=== PATIENT | female | born 1995 ===

== ENCOUNTER 2016-12-21 08:49 | Emergency (ER) | payer MEDICAID ==
[2016-12-21 09:22] VITALS: BMI 33.6
[2016-12-21 09:25] VITALS: RESP 18
[2016-12-21] MEDS ORDERED: Ciprofloxacin 0.3% OPTH SOLN OS STA (10:08)
--- NOTE | 2016-12-21 10:10 | ED PDOC ---
Arrival/HPI - General Chief Complaint: Eye Problem Time Seen by Provider: 12/21/16 10:06 Historian: Patient - History of Present Illness Narrative History of Present Illness (Text): 12/21/16 10:06 This 21 yo female presents to this ED c/o left eye redness, itchy, and sensation of FB x 1 day. Denies injury, or sick contact. Context: Home Past Medical History - Provider Review Nursing Documentation Reviewed: Yes - Infectious Disease Hx of Infectious Diseases: None - HEENT Other/Comment: previous throat infections - Genitourinary/Gynecological Other/Comment: kidney infections 2016 - Psychiatric Hx Substance Use: No - Anesthesia Hx Anesthesia: No Hx Anesthesia Reactions: No Hx Malignant Hyperthermia: No Family/Social History - Physician Review Nursing Documentation Reviewed: Yes Family/Social History: No Known Family HX Smoking Status: Never Smoked Hx Alcohol Use: No Hx Substance Use: No Allergies/Home Meds Allergies/Adverse Reactions: Allergies almond Allergy (Verified 12/21/16 09:25) ITCHING cashew nut Allergy (Verified 12/21/16 09:25) ITCHING pecan nut Allergy (Verified 12/21/16 09:25) ITCHING Home Medications: Home Meds Medication Instructions Recorded Confirmed Etonogestrel [Nexplanon] 68 mg SQ ONCE 08/15/16 12/21/16 Ferrous Sulfate [Feosol] 325 mg PO TID 12/21/16 12/21/16 Review of Systems - Review of Systems Constitutional: Normal. absent: Fatigue, Weight Change, Fevers Eyes: Other (See HPI) ENT: Normal Respiratory: Normal. absent: SOB, Cough Cardiovascular: Normal Gastrointestinal: Normal Genitourinary Female: Normal Musculoskeletal: Normal Skin: Normal Neurological: Normal Endocrine: Normal Hemo/Lymphatic: Normal Psychiatric: Normal Physical Exam Vital Signs Temp Pulse Resp BP Pulse Ox 12/21/16 11:30 98.5 F 86 18 120/66 100 12/21/16 09:21 98.9 F 94 H 18 124/84 99 Temperature: Afebrile Blood Pressure: Normal Pulse: Regular Respiratory Rate: Normal Appearance: Positive for: Well-Appearing, Non-Toxic, Comfortable Pain Distress: None Mental Status: Positive for: Alert and Oriented X 3 - Systems Exam Head: Present: Atraumatic, Normocephalic Pupils: Present: PERRL, Other (no hyphema. No corneal or eyelid FB) Extroacular Muscles: Present: EOMI. No: Entrapment Conjunctiva: Present: Injected, Other ((+) mild left eye discharge. Fluorescine stain was negative. No corneal abrasion or laceration) Mouth: Present: Moist Mucous Membranes Neck: Present: Normal Range of Motion Upper Extremity: Present: Normal Inspection, Normal ROM, NORMAL PULSES, Neurovascularly Intact, Capillary Refill < 2s Lower Extremity: Present: Normal Inspection, Normal ROM, Neurovascularly Intact , Capillary Refill < 2 s Neurological: Present: GCS=15, CN II-XII Intact, Speech Normal Skin: Present: Warm, Dry, Normal Color. No: Rashes Psychiatric: Present: Alert, Oriented x 3 Medical Decision Making ED Course and Treatment: 12/21/16 11:39 Patient came to ED c/o left eye discharge, redness, and FB sensation. Denies eye trauma. Physical exam was unremarkable, except for conjunctivitis, mild discharge, no FB. Fluorescine stain was negative. Patient was treated with Ofloxacin Ophthalmic solution. Patient was give eye drop ABX bottle. Patient feels better, and she agrees with plan. Re-evaluation Time: 11:41 Reassessment Condition: Re-examined, Improved - Medication Orders Current Medication Orders: Discontinued Medications Ciprofloxacin (Ciloxan 0.3% Ophth Soln) 1 drop OS STAT STA Stop: 12/21/16 10:09 Last Admin: 12/21/16 10:36 Dose: 1 drop Disposition/Present on Arrival - Present on Arrival Any Indicators Present on Arrival: No History of DVT/PE: No History of Uncontrolled Diabetes: No Urinary Catheter: No History of Decub. Ulcer: No History Surgical Site Infection Following: None - Disposition Have Diagnosis and Disposition been Completed?: Yes Diagnosis: Conjunctivitis Disposition: HOME/ ROUTINE Disposition Time: 11:42 Patient Plan: Discharge Patient Problems: Current Active Problems Problem Status Onset Conjunctivitis Acute Condition: GOOD Discharge Instructions (ExitCare): Conjunctivitis (ED) Additional Instructions: Call private doctor for follow up visit in 1-2 days. Use 1 drop on affected eye every 2 hours for 2 days, then 1 drop every 4 hours for 5 days. Return to emergency if symptoms worsen. Forms: WORK NOTE
[2016-12-21 11:31] VITALS: BP 120/66; PULSE 86; TEMP 98.5; O2SAT 100
== END 2016-12-21 12:48 | disposition home or self-care (01) ==
LOC: ED 08:49
DX: H10.9 Unspecified conjunctivitis (principal)

== ENCOUNTER 2017-02-28 08:34 | Emergency (ER) | payer MEDICAID ==
[2017-02-28 08:35] VITALS: BMI 33.6
[2017-02-28 08:37] VITALS: TEMP 98.8
--- NOTE | 2017-02-28 09:32 | ED PDOC ---
Arrival/HPI - General Historian: Patient <QuirozAndrew sparrow Jr. - Last Filed: 02/28/17 11:12> - History of Present Illness Time/Duration: 4-6 hours Symptom Onset: Gradual Symptom Course: Unchanged Severity Level: 7 <Demetria Neal - Last Filed: 02/28/17 11:22> - General Chief Complaint: Weakness/Neurological Deficit Time Seen by Provider: 02/28/17 09:09 - History of Present Illness Narrative History of Present Illness (Text): 02/28/17 09:28 21 year old F with past medical history of migraines and anemia presents for GUTIERREZ that began last night. Patient states that GUTIERREZ is located on left frontal region with no radiation. Pain is associated with tingling on left side of tongue, left hand. Patient did not take any medication for the pain. GUTIERREZ is associated with nausea and vomiting x 3. Patient states that she normally uses and abortive medication for migraine but has run out of medications. She has not used any medications for the pain. Patient states her weakness and numbness in her extremity and tongue is improving. Headache is 7/10. (Demetria Neal) Past Medical History - Provider Review Nursing Documentation Reviewed: Yes - Travel History Have you recently traveled outside [place] w/in the past 3 mons?: No - Infectious Disease Hx of Infectious Diseases: None - Cardiac Hx Cardiac Disorders: No - Pulmonary Hx Respiratory Disorders: No - Neurological Hx Neurological Disorder: Yes Hx Migraine: Yes - HEENT Hx HEENT Disorder: No - Renal Hx Renal Disorder: No - Endocrine/Metabolic Hx Endocrine Disorders: No - Hematological/Oncological Hx Blood Disorders: Yes Hx Anemia: Yes - Integumentary Hx Dermatological Disorder: No - Musculoskeletal/Rheumatological Hx Musculoskeletal Disorders: No - Gastrointestinal Hx Gastrointestinal Disorders: No - Genitourinary/Gynecological Hx Genitourinary Disorders: No Other/Comment: kidney infections 2016 - Psychiatric Hx Psychophysiologic Disorder: No Hx Substance Use: No - Anesthesia Hx Anesthesia: No Hx Anesthesia Reactions: No Hx Malignant Hyperthermia: No <Demetria Neal - Last Filed: 02/28/17 11:22> Family/Social History - Physician Review Nursing Documentation Reviewed: Yes Family/Social History: Unknown Family HX Smoking Status: Never Smoked Hx Alcohol Use: No Hx Substance Use: No <Demetria Neal - Last Filed: 02/28/17 11:22> Allergies/Home Meds <Andrew Quiroz Jr. - Last Filed: 02/28/17 11:12> <SamuelóscarDemetria - Last Filed: 02/28/17 11:22> Allergies/Adverse Reactions: Allergies almond Allergy (Verified 02/28/17 08:36) ITCHING cashew nut Allergy (Verified 02/28/17 08:36) ITCHING pecan nut Allergy (Verified 02/28/17 08:36) ITCHING Review of Systems - Review of Systems Constitutional: Normal. absent: Fatigue, Fevers Eyes: Normal. absent: Vision Changes, Photophobia, Eye Pain ENT: Normal. absent: Hearing Changes, Sore Throat, Rhinorrhea, Sinus Congestion Respiratory: Normal. absent: SOB, Cough, Sputum, Wheezing Cardiovascular: Normal. absent: Chest Pain, Palpitations, Edema Gastrointestinal: Nausea, Vomiting. absent: Abdominal Pain, Constipation, Diarrhea Genitourinary Female: Normal. absent: Dysuria, Frequency Musculoskeletal: Normal. absent: Arthralgias, Back Pain, Neck Pain Skin: Normal. absent: Rash, Pruritis, Skin Lesions, Laceration Neurological: Headache. absent: Dizziness, Focal Weakness, Speech Changes, Facial Droop, Seizure Endocrine: Normal. absent: Diaphoresis, Polyuria Hemo/Lymphatic: Normal. absent: Adenopathy Psychiatric: Normal. absent: Anxiety, Depression <Demetria Neal - Last Filed: 02/28/17 11:22> Physical Exam Temperature: Afebrile Blood Pressure: Normal Pulse: Tachycardic Respiratory Rate: Normal Appearance: Positive for: Well-Appearing, Non-Toxic, Comfortable Pain Distress: Moderate Mental Status: Positive for: Alert and Oriented X 3 - Systems Exam Head: Present: Atraumatic, Normocephalic Pupils: Present: PERRL Extroacular Muscles: Present: EOMI Conjunctiva: Present: Normal Mouth: Present: Moist Mucous Membranes Neck: Present: Normal Range of Motion. No: Meningeal Signs, MIDLINE TENDERNESS Respiratory/Chest: Present: Clear to Auscultation, Good Air Exchange. No: Respiratory Distress, Accessory Muscle Use, Wheezes, Rales, Rhonchi Cardiovascular: Present: Regular Rate and Rhythm, Normal S1, S2. No: Murmurs, Rub, Gallop, Muffled Abdomen: Present: Normal Bowel Sounds. No: Tenderness, Distention, Peritoneal Signs Upper Extremity: Present: Normal Inspection, Normal ROM, NORMAL PULSES. No: Edema Lower Extremity: Present: Normal Inspection, Normal ROM, Neurovascularly Intact. No: Edema, CALF TENDERNESS, NORMAL PULSES, Jose's Sign Neurological: Present: GCS=15, CN II-XII Intact, Speech Normal, Motor Func Grossly Intact, Normal Sensory Function, Normal 2Pt Descrimination Skin: Present: Warm, Dry, Normal Color. No: Rashes Psychiatric: Present: Alert, Oriented x 3, Normal Insight, Normal Concentration <KarimDemetria - Last Filed: 02/28/17 11:22> Vital Signs Temp Pulse Resp BP Pulse Ox 02/28/17 10:02 77 16 129/65 100 02/28/17 08:37 98.8 F 100 H 15 124/87 99 Medical Decision Making - EKG Interpretation Interpreted by ED Physician: Yes Type: 12 lead EKG <Andrew Quiroz Jr. - Last Filed: 02/28/17 11:12> <Demetria Neal - Last Filed: 02/28/17 11:22> ED Course and Treatment: 02/28/17 11:12 In agreement with resident note, which includes further HPI details. Patient was seen and evaluated with resident, came up with plan and treatment together. (Andrew Quiroz Jr.) 02/28/17 09:38 21 year old female presents for GUTIERREZ similar to her previous migraine GUTIERREZ 7/10 in intensity. Patient will receive Imitrex and promethazine and then will revaluate. 02/28/17 10:25 Patient is reexamined. GUTIERREZ is now a 4/10 in intensity 02/28/17 10:59 Headache has improved. (Karim,Demetria) - EKG Interpretation EKG Interpretation (Text): 02/28/17 10:16 NSR with HR of 81. No ST changes, normal axis and normal intervals (KarimDemetria) - Medication Orders Current Medication Orders: Discontinued Medications Promethazine HCl (Phenergan Syrup) 25 mg PO STAT ONE Stop: 02/28/17 09:46 Last Admin: 02/28/17 09:50 Dose: 25 mg Sumatriptan Succinate (Imitrex Tab) 50 mg PO ONCE ONE Stop: 02/28/17 09:22 Last Admin: 02/28/17 09:50 Dose: 50 mg - PA / [employer]ER / Resident Statement MD/DO has reviewed & agrees with the documentation as recorded. MD/DO has examined the patient and agrees with the treatment plan. - Scribe Statement The provider has reviewed the documentation as recorded by the Scribe <Andrew Quiroz Jr. - Last Filed: 02/28/17 11:12> <Demetria Neal - Last Filed: 02/28/17 11:22> - Scribe Statement 02/28/2017 Azulrichar LongoriaKatarzyna Provider Scribe Attestation: All medical record entries made by the Scribe were at my direction and personally dictated by me. I have reviewed the chart and agree that the record accurately reflects my personal performance of the history, physical exam, medical decision making, and the department course for this patient. I have also personally directed, reviewed, and agree with the discharge instructions and disposition. (Andrew Quiroz Jr.) Disposition/Present on Arrival <Andrew Quiroz Jr. - Last Filed: 02/28/17 11:12> - Present on Arrival Any Indicators Present on Arrival: No History of DVT/PE: No History of Uncontrolled Diabetes: No Urinary Catheter: No History of Decub. Ulcer: No History Surgical Site Infection Following: None - Disposition Have Diagnosis and Disposition been Completed?: Yes Disposition Time: 10:59 Patient Plan: Discharge <Demetria Neal - Last Filed: 02/28/17 11:22> - Disposition Diagnosis: Migraine Disposition: HOME/ ROUTINE Patient Problems: Current Active Problems Problem Status Onset Migraine Acute Condition: GOOD Additional Instructions: Antonette Venegas, thank you for letting us take care of you today. Your provider was Dr. Demetria Neal. You were treated for migraine. The emergency medical care you received today was directed at your acute symptoms. If you were prescribed any medication, please fill it and take as directed. It may take several days for your symptoms to resolve. Return to the Emergency Department if your symptoms worsen, do not improve, or if you have any other problems. Please contact your doctor or call one of the physicians/clinics you have been referred to that are listed on the Patient Visit Information form that is included in your discharge packet. Bring any paperwork you were given at discharge with you along with any medications you are taking to your follow up visit. Our treatment cannot replace ongoing medical care by a primary care provider (PCP) outside of the emergency department. Thank you for allowing the [facility] team to be part of your care today. If you had an X-Ray or CT scan: A Radiologist will review the ED reading if any change in treatment is needed we will contact you. If you had a blood, urine, or wound culture: It will take several days for the results, if any change in treatment is needed we will contact you. If you had an STI test: It will take 48 hours for the results. Please call after 1 week if you have not heard back. Prescriptions: Sumatriptan Succinate [Imitrex] 100 mg PO DAILY PRN #5 tablet PRN Reason: headache Referrals: PCP,NO [Primary Care Provider] - Follow up with primary Forms: [employer] (Kyrgyz)
[2017-02-28] MEDS ORDERED: Promethazine 6.25 MG/5 ML CUP PO ONE (09:45)
[2017-02-28 10:02] VITALS: BP 129/65; PULSE 77; RESP 16; O2SAT 100
--- NOTE | 2017-02-28 13:12 | CARD ---
APPROVED REPORT EKG Measurement Heart [id number] <Conclusion> Normal sinus rhythm Normal ECG
== END 2017-02-28 11:15 | disposition home or self-care (01) ==
LOC: ED 08:34
DX: G43.909 Migraine, unspecified, not intractable, without status migrainosus (principal); D64.9 Anemia, unspecified

== ENCOUNTER 2017-05-29 08:33 | Emergency (ER) | payer MEDICAID ==
[2017-05-29 08:34] VITALS: BMI 33.6
[2017-05-29 08:50] VITALS: RESP 16; TEMP 98.8
[2017-05-29] MEDS ORDERED: Amoxicillin-Clav 875-125 mg Tab PO STA (09:02)
--- NOTE | 2017-05-29 09:07 | ED PDOC ---
Arrival/HPI <Tony Ponce - Last Filed: 05/29/17 09:47> <David Jacobs - Last Filed: 05/29/17 17:43> - General Chief Complaint: ENT Problem Time Seen by Provider: 05/29/17 08:56 - History of Present Illness Narrative History of Present Illness (Text): CC: Sore throat x2d Patient is a 22yo F w/ a PMhx of Migraines on Topimax who is coming in with a 2d history of sore/itchy throat. patient has not taken anything for the symptoms. She denies fevers/chills, trouble swallowing, trouble breathing, SOB, abdominal pain, N/V/D, dysuria/freq/urg, or lower extremity pain/swelling, depression/anxiety. Patient denies sinus pain, or ear pain. Pmhx: Migraines Allergies: Denies any to medications; however anaphylaxis to nuts Surgeries: Denies Meds; Topimax TID FamHx: HTN, DM, no cancer Social: in college, lives at home, denies etoh/smoking/illicit drugs, no one smokes at home, independent in all ADL/IADL, walks without assistance (Tony Ponce) Past Medical History - Provider Review Nursing Documentation Reviewed: Yes - Travel History Have you recently traveled outside [place] w/in the past 3 mons?: No - Past History Past History: No Previous - Infectious Disease Hx of Infectious Diseases: None - Reproductive Menopause: No - Cardiac Hx Cardiac Disorders: No - Pulmonary Hx Respiratory Disorders: No - Neurological Hx Neurological Disorder: Yes Hx Migraine: Yes - HEENT Hx HEENT Disorder: No - Renal Hx Renal Disorder: No - Endocrine/Metabolic Hx Endocrine Disorders: No - Hematological/Oncological Hx Blood Disorders: Yes Hx Anemia: Yes - Integumentary Hx Dermatological Disorder: No - Musculoskeletal/Rheumatological Hx Musculoskeletal Disorders: No - Gastrointestinal Hx Gastrointestinal Disorders: No - Genitourinary/Gynecological Hx Genitourinary Disorders: No Other/Comment: kidney infections 2016 - Psychiatric Hx Psychophysiologic Disorder: No Hx Substance Use: No - Anesthesia Hx Anesthesia: No Hx Anesthesia Reactions: No Hx Malignant Hyperthermia: No <Tony Ponce - Last Filed: 05/29/17 09:47> Family/Social History - Physician Review Nursing Documentation Reviewed: Yes Family/Social History: Diabetes, Hypertension. denies: CAD/MD Smoking Status: Never Smoked Hx Alcohol Use: No Hx Substance Use: No <Tony Ponce - Last Filed: 05/29/17 09:47> Allergies/Home Meds <Tony Ponce - Last Filed: 05/29/17 09:47> <David Jacobs - Last Filed: 05/29/17 17:43> Allergies/Adverse Reactions: Allergies almond Allergy (Verified 05/29/17 08:47) ITCHING cashew nut Allergy (Verified 05/29/17 08:47) ITCHING pecan nut Allergy (Verified 05/29/17 08:47) ITCHING Home Medications: Home Meds Medication Instructions Recorded Confirmed Topiramate [Topamax] 50 mg PO TID 05/29/17 05/29/17 Review of Systems - Review of Systems Constitutional: absent: Fatigue, Weight Change, Fevers Eyes: absent: Vision Changes ENT: Sore Throat. absent: Hearing Changes, TMJ Pain, Rhinorrhea, Epistaxis, Sinus Congestion Respiratory: Cough. absent: SOB, Sputum, Wheezing Cardiovascular: absent: Chest Pain, Palpitations Gastrointestinal: absent: Abdominal Pain, Stool Changes Genitourinary Female: absent: Dysuria, Frequency Musculoskeletal: absent: Arthralgias, Back Pain Skin: absent: Rash, Pruritis Neurological: absent: Headache, Dizziness Endocrine: absent: Diaphoresis, Polyuria Hemo/Lymphatic: absent: Adenopathy Psychiatric: absent: Anxiety, Depression <Tony Ponce - Last Filed: 05/29/17 09:47> Physical Exam Vital Signs Reviewed: Yes Temperature: Afebrile Blood Pressure: Normal Pulse: Regular Respiratory Rate: Normal Appearance: Positive for: Well-Appearing Mental Status: Positive for: Alert and Oriented X 3 - Systems Exam Head: Present: Atraumatic, Normocephalic Pupils: Present: PERRL. No: Sluggish, Non-Reactive Extroacular Muscles: Present: EOMI. No: Gaze Palsy Conjunctiva: Present: Normal. No: Injected Ears: Present: Normal, NORMAL TM. No: Erythema, Normal Canal Mouth: Present: Moist Mucous Membranes, Normal Lips, Normal Tounge, Normal Teeth Pharnyx: Present: ERYTHEMA, TONSILS ENLARGED (mild enlargement right compared to left, patent, patient has elevated ). No: EXUDATE, Peritonsilar Swelling, Uvular Deviation, Muffled/Hoarse Voice, Strider, Soft Palate/Uvular Edema Neck: Present: Normal Range of Motion. No: Meningeal Signs Respiratory/Chest: Present: Clear to Auscultation, Good Air Exchange. No: Respiratory Distress, Accessory Muscle Use, Wheezes Cardiovascular: Present: Regular Rate and Rhythm, Normal S1, S2. No: Murmurs Abdomen: No: Tenderness, Distention <Tony Ponce - Last Filed: 05/29/17 09:47> Vital Signs Temp Pulse Resp BP Pulse Ox 05/29/17 10:13 80 16 121/97 H 100 05/29/17 08:43 98.8 F 90 16 122/82 99 Medical Decision Making <Tony Ponce - Last Filed: 05/29/17 09:47> <Dvaid Jacobs - Last Filed: 05/29/17 17:43> ED Course and Treatment: Sore throat; bacterial vs viral Will give decadron and augmentin Will do rapid flu and rapid strep with culture dispo and reassess patient has stable vital signs, no signs of respiratory compromise, is tolerating PO at home, afebrile, clinically stable 05/29/17 09:42 negative for flu 05/29/17 09:43 negative for rapid strep throat cultures will be pending the patient is stable for d/c as per dr. Jacobs the patient will need to f/u with primary if symptoms continue the patient will be given a prescription for augmentin, if symptoms continue for 5 days the patient was instructed to start taking the augmentin as prescribed but not to fill it for now the patient verbalized understanding (Tony Ponce) - Lab Interpretations Lab Results: Lab Results 05/29/17 09:10: Influenza Typ A,B (EIA) Negative for flu a/b 05/29/17 09:10: Grp A Beta Strep Ag Negative - Medication Orders Current Medication Orders: Discontinued Medications Amoxicillin/Clavulanate Potassium (Augmentin 875 Mg-125 Mg Tab) 1 tab PO STAT STA PRN Reason: Protocol Stop: 05/29/17 09:03 Last Admin: 05/29/17 09:23 Dose: 1 tab Dexamethasone (Decadron Inj) 10 mg IM STAT STA Stop: 05/29/17 09:03 Last Admin: 05/29/17 09:23 Dose: 10 mg IM Administration Charges Document 05/29/17 09:23 HI (Rec: 05/29/17 09:23 HI [id number]) Injection Site MAR Injection Site Left Deltoid Charges for Administration # of IM Administrations 1 - PA / [employer] / Resident Statement MD/DO has reviewed & agrees with the documentation as recorded. <David Jacobs - Last Filed: 05/29/17 17:43> Disposition/Present on Arrival - Present on Arrival Any Indicators Present on Arrival: No History of DVT/PE: No History of Uncontrolled Diabetes: No Urinary Catheter: No History of Decub. Ulcer: No History Surgical Site Infection Following: None - Disposition Have Diagnosis and Disposition been Completed?: Yes Disposition Time: 09:47 Patient Plan: Discharge <Tony Ponce - Last Filed: 05/29/17 09:47> <David Jacobs - Last Filed: 05/29/17 17:43> - Disposition Diagnosis: Sore throat Disposition: HOME/ ROUTINE Condition: FAIR Discharge Instructions (ExitCare): Pharyngitis (ED) Additional Instructions: Please only fill the augmentin if your strep throat culture comes back positive ; you will receive a call in the next few days if it is please follow up with your primary care provider to see how you are progressing increase fluids, and take tylenol/ibuprofen as indicated for symptom management please feel better Prescriptions: Amoxicillin/Clavulanate [Augmentin 875 MG-125 MG] 1 tab PO BID 7 Days #14 tab Forms: [employer] ([place]ivehi), WORK NOTE
[2017-05-29 10:15] VITALS: BP 121/97; PULSE 80; O2SAT 100
== END 2017-05-29 10:13 | disposition home or self-care (01) ==
LOC: ED 08:33
DX: J02.9 Acute pharyngitis, unspecified (principal); E11.9 Type 2 diabetes mellitus without complications; I10 Essential (primary) hypertension
CPT/HCPCS: 87070; 87430; 87804; 96372; 99283; J1100

== ENCOUNTER 2017-12-13 05:49 | Emergency (ER) | payer MEDICAID ==
[2017-12-13 05:50] VITALS: BMI 33.6
--- NOTE | 2017-12-13 06:06 | ED PDOC ---
Arrival/HPI - General Time Seen by Provider: 12/13/17 06:02 Historian: Patient - History of Present Illness Narrative History of Present Illness (Text): 12/13/17 06:02 22 year old female, whose past medical history includes migraines on Topimax and anemia, presents to the emergency department complaining of right-sided migraine headache associated with nausea, vomiting, and dizziness. Patient reports she could not keep down her migraine medication. Patient denies any fever, chills, chest pain, shortness of breath, abdominal pain, diarrhea, urinary symptoms, back pain, neck pain, or any other complaints. Symptom Onset: Gradual Symptom Course: Unchanged Activities at Onset: Light Context: Home Past Medical History - Provider Review Nursing Documentation Reviewed: Yes - Past History Past History: No Previous - Infectious Disease Hx of Infectious Diseases: None - Cardiac Hx Cardiac Disorders: No - Pulmonary Hx Respiratory Disorders: No - Neurological Hx Neurological Disorder: Yes Hx Migraine: Yes - HEENT Hx HEENT Disorder: No - Renal Hx Renal Disorder: No - Endocrine/Metabolic Hx Endocrine Disorders: No - Hematological/Oncological Hx Blood Disorders: Yes Hx Anemia: Yes - Integumentary Hx Dermatological Disorder: No - Musculoskeletal/Rheumatological Hx Musculoskeletal Disorders: No - Gastrointestinal Hx Gastrointestinal Disorders: No - Genitourinary/Gynecological Hx Genitourinary Disorders: No Other/Comment: kidney infections 2016 - Psychiatric Hx Psychophysiologic Disorder: No Hx Substance Use: No - Anesthesia Hx Anesthesia: No Hx Anesthesia Reactions: No Hx Malignant Hyperthermia: No Family/Social History - Physician Review Nursing Documentation Reviewed: Yes Family/Social History: No Known Family HX Smoking Status: Never Smoked Hx Alcohol Use: No Hx Substance Use: No Allergies/Home Meds Allergies/Adverse Reactions: Allergies almond Allergy (Verified 12/13/17 06:07) ITCHING cashew nut Allergy (Verified 12/13/17 06:07) ITCHING pecan nut Allergy (Verified 12/13/17 06:07) ITCHING Home Medications: Home Meds Medication Instructions Recorded Confirmed Gabapentin [Neurontin] 100 mg PO TID 12/13/17 12/13/17 Review of Systems - Physician Review All systems were reviewed & negative as marked: Yes - Review of Systems Constitutional: absent: Fevers, Other (Chills) Respiratory: absent: SOB Cardiovascular: absent: Chest Pain Gastrointestinal: Nausea, Vomiting. absent: Abdominal Pain, Diarrhea Musculoskeletal: absent: Back Pain, Neck Pain Neurological: Headache, Dizziness Physical Exam Vital Signs Reviewed: Yes Vital Signs Pulse Resp BP Pulse Ox 12/13/17 06:08 83 18 131/76 97 Temperature: Afebrile Blood Pressure: Normal Pulse: Regular Respiratory Rate: Normal Appearance: Positive for: Well-Appearing, Non-Toxic, Comfortable Pain Distress: None Mental Status: Positive for: Alert and Oriented X 3 - Systems Exam Head: Present: Atraumatic, Normocephalic Pupils: Present: PERRL Extroacular Muscles: Present: EOMI Conjunctiva: Present: Normal Mouth: Present: Moist Mucous Membranes Neck: Present: Normal Range of Motion Respiratory/Chest: Present: Clear to Auscultation, Good Air Exchange. No: Respiratory Distress, Accessory Muscle Use Cardiovascular: Present: Regular Rate and Rhythm, Normal S1, S2. No: Murmurs Abdomen: No: Tenderness, Distention, Peritoneal Signs Back: Present: Normal Inspection Upper Extremity: Present: Normal Inspection. No: Cyanosis, Edema Lower Extremity: Present: Normal Inspection. No: Edema Neurological: Present: GCS=15, CN II-XII Intact, Speech Normal Skin: Present: Warm, Dry, Normal Color. No: Rashes Psychiatric: Present: Alert, Oriented x 3, Normal Insight, Normal Concentration Medical Decision Making ED Course and Treatment: 12/13/17 06:07 Impression: 22 year old female presents complaining of right -sided migraines headache associated with nausea, vomiting, and dizziness. Plan: -- Labs -- Reglan, IV Fluids, Toradol, Zofran Inj -- Urine Test -- UA -- Head CT -- Reassess and disposition - Lab Interpretations I have reviewed the lab results: Yes - Medication Orders Current Medication Orders: Sodium Chloride (Sodium Chloride 0.9%) 1,000 mls @ 999 mls/hr IV .Q1H1M STA Stop: 12/13/17 07:13 Ketorolac Tromethamine (Toradol) 30 mg IVP STAT STA Stop: 12/13/17 06:14 Metoclopramide HCl (Reglan) 10 mg IVP STAT STA Stop: 12/13/17 06:14 Ondansetron HCl (Zofran Inj) 4 mg IVP STAT STA Stop: 12/13/17 06:14 - Scribe Statement The provider has reviewed the documentation as recorded by the Scribe Micheal Allenour Provider Juan Attestation: All medical record entries made by the Juan were at my direction and personally dictated by me. I have reviewed the chart and agree that the record accurately reflects my personal performance of the history, physical exam, medical decision making, and the department course for this patient. I have also personally directed, reviewed, and agree with the discharge instructions and disposition. Disposition/Present on Arrival - Present on Arrival History of DVT/PE: No History of Uncontrolled Diabetes: No Urinary Catheter: No History Surgical Site Infection Following: None - Disposition
[2017-12-13 06:12] VITALS: RESP 18; O2SAT 97
[2017-12-13] MEDS ORDERED: Sodium Chloride 0.9% 1,000 ML IV STA (06:13)
[2017-12-13 06:50] LABS: BASO # 0.02 K/mm3 (0.0-2.0); BASO % 0.2 % (0.0-3.0); EOS # 0.2 (0.0-0.7); EOS % 1.8 % (1.5-5.0); GRAN # 5.44 (1.4-6.5); GRAN % 54.1 % (50.0-68.0); HEMOGLOBIN 11.4 g/dL (12.0-16.0); LYMPH # 3.7 (1.2-3.4); LYMPH % 36.5 % (22.0-35.0); MEAN CELL VOLUME 71.2 fl (80.0-105.0); MEAN CORPUSCULAR HEMOGLOBIN 22.8 pg (25.0-35.0); MEAN PLATELET VOLUME 9.3 fl (7.0-11.0); MONO # 0.7 (0.1-0.6); MONO % 7.4 % (1.0-6.0); WHITE BLOOD COUNT 10.1 10^3/ul (4.5-11.0)
[2017-12-13 06:51] LABS: PH,URINE 6.5 (4.7-8.0); URINE BILIRUBIN NEGATIVE (NEGATIVE); URINE BLOOD NEGATIVE (NEGATIVE); URINE GLUCOSE (UA) NEGATIVE (NEGATIVE); URINE LEUKOCYTE ESTERASE NEGATIVE Leu/uL (NEGATIVE); URINE PROTEIN NEGATIVE mg/dL (<30 mg/dL); URINE UROBILINOGEN 0.2 E.U./dL (<1 E.U./dL)
[2017-12-13 07:00] LABS: ALB/GLOB RATIO 1.3 (1.1-1.8); ALBUMIN 4.2 g/dL (3.0-4.8); ALT/SGPT 27 U/L (7-56); AST/SGOT 21 U/L (14-36); BLOOD UREA NITROGEN 9 mg/dL (7-21); CALCIUM 9.2 mg/dL (8.4-10.5); GFR AFRICAN-AMERICAN > 60; GFR NON-AFRICAN AMERICAN > 60; URINE APPEARANCE CLEAR (CLEAR); URINE COLOR YELLOW (YELLOW)
--- NOTE | 2017-12-13 07:12 | CT ---
EXAM: CT Head Without Intravenous Contrast CLINICAL HISTORY: 22 years old, female; Pain; Headache; Migraine; Without aura; Does respond to medication; Severity not specified; Additional info: Right sided headache, ? migraine TECHNIQUE: Axial computed tomography images of the head/brain without intravenous contrast. All CT scans at this facility use one or more dose reduction techniques, viz.: automated exposure control; ma/kV adjustment per patient size (including targeted exams where dose is matched to indication; i.e. head); or iterative reconstruction technique. Coronal and sagittal reformatted images were created and reviewed. COMPARISON: CT - HEAD W/O CONTRAST 2016-08-15 20:19 FINDINGS: Brain: Examination of the brain demonstrates normal structure and attenuation.The cortical whit[place] / white matter interfaces are preserved throughout the brain.No acute infarction, masses or hemorrhage is seen. No acute intracranial abnormality is identified.There is no hyperdense MCA sign. Examination of the posterior fossa demonstrates no significant abnormality. Ventricles: The ventricular system is not dilated and is appropriate for the patient's age. Bones/joints: Unremarkable. No acute fracture. Soft tissues: Unremarkable. Sinuses: Unremarkable as visualized. No acute sinusitis. Mastoid air cells: Unremarkable as visualized. No mastoid effusion. IMPRESSION: No acute infarction, masses or hemorrhage is seen. No acute intracranial abnormality is identified.
--- NOTE | 2017-12-13 07:29 | ED PDOC ---
Physical Exam - Physical Exam Narrative Physical Exam (Text): 22 y/o F c PMHx migraines p/w headache typical of her migraine. Signed out to me pending CT Head reading and reassessment after treatments. IMPRESSION: No acute infarction, masses or hemorrhage is seen. No acute intracranial abnormality is identified. Patient at 7:25am, states she is feeling well, headache is now gone and is comfortable to go home. She states she was at work when the pain began so they required her to go to the ED. Vital Signs Temp Pulse Resp BP Pulse Ox 12/13/17 06:29 98.6 F 12/13/17 06:08 83 18 131/76 97 Medical Decision Making - Lab Interpretations Lab Results: 12/13/17 06:32 12/13/17 06:32 Lab Results 12/13/17 06:32: Sodium 142, Potassium 4.2, Chloride 107, Carbon Dioxide 24, Anion Gap 16, BUN 9, Creatinine 0.6 L, Est GFR ( Amer) > 60, Est GFR (Non -Af Amer) > 60, Random Glucose 107, Calcium 9.2, Total Bilirubin 0.2, AST 21, ALT 27, Alkaline Phosphatase 95, Total Protein 7.3, Albumin 4.2, Globulin 3.1, Albumin/Globulin Ratio 1.3 12/13/17 06:32: Urine Color Yellow, Urine Appearance Clear, Urine pH 6.5, Ur Specific [place] 1.020, Urine Protein Negative, Urine Glucose (UA) Negative, Urine Ketones Negative, Urine Blood Negative, Urine Nitrate Negative, Urine Bilirubin Negative, Urine Urobilinogen 0.2, Ur Leukocyte Esterase Negative 12/13/17 06:32: WBC 10.1, RBC 5.00, Hgb 11.4 L, Hct 35.6 L, MCV 71.2 L, MCH 22.8 L, MCHC 32.0, RDW 18.0 H, Plt Count 457 H, MPV 9.3, Gran % 54.1, Lymph % ( Auto) 36.5 H, Turner % (Auto) 7.4 H, Eos % (Auto) 1.8, Baso % (Auto) 0.2, Gran # 5.44, Lymph # (Auto) 3.7 H, Turner # (Auto) 0.7 H, Eos # (Auto) 0.2, Baso # (Auto ) 0.02 - RAD Interpretation Radiology Orders: 12/13/17 06:15 HEAD W/O CONTRAST [CT] Stat - Medication Orders Current Medication Orders: Discontinued Medications Sodium Chloride (Sodium Chloride 0.9%) 1,000 mls @ 999 mls/hr IV .Q1H1M STA Stop: 12/13/17 07:13 Last Admin: 12/13/17 06:39 Dose: 999 mls/hr eMAR Start Stop Document 12/13/17 06:39 (Rec: 12/13/17 06:40 [id number]) Intravenous Solution Start Date 12/13/17 Start Time 06:39 Ketorolac Tromethamine (Toradol) 30 mg IVP STAT STA Stop: 12/13/17 06:14 Last Admin: 12/13/17 06:33 Dose: 30 mg MAR Pain Assessment Document 12/13/17 06:33 (Rec: 12/13/17 06:38 [id number]) Pain Reassessment Is this a pain reassessment? Yes Sleep Is patient sleeping during reassessment? No Presence of Pain Presence of Pain Yes Pain Scale Used Pain Scale Used Numeric Location Left, Right or Bilateral Right Pain Location Body Theology Teacher Description Description Constant Pain Behavior Facial Grimacing IVP Administration Document 12/13/17 06:33 (Rec: 12/13/17 06:38 [id number]) Charges for Administration # of IVP Administrations 1 Metoclopramide HCl (Reglan) 10 mg IVP STAT STA Stop: 12/13/17 06:14 Last Admin: 12/13/17 06:30 Dose: 10 mg IVP Administration Document 12/13/17 06:30 RG (Rec: 12/13/17 06:39 [id number]) Charges for Administration # of IVP Administrations 1 Ondansetron HCl (Zofran Inj) 4 mg IVP STAT STA Stop: 12/13/17 06:14 Last Admin: 12/13/17 06:39 Dose: 4 mg IVP Administration Document 12/13/17 06:39 RG (Rec: 12/13/17 06:39 [id number]) Charges for Administration # of IVP Administrations 1 Disposition/Present on Arrival - Present on Arrival Any Indicators Present on Arrival: No History of DVT/PE: No History of Uncontrolled Diabetes: No Urinary Catheter: No History of Decub. Ulcer: Yes History Surgical Site Infection Following: None - Disposition Have Diagnosis and Disposition been Completed?: Yes Diagnosis: Headache Disposition: HOME/ ROUTINE Disposition Time: 07:29 Patient Plan: Discharge Condition: STABLE Discharge Instructions (ExitCare): Migraine Headache (DC) Referrals: Leobardo Medina MD [Primary Care Provider] - Follow up with primary Forms: [facility] ([place]), WORK NOTE
[2017-12-13 07:41] VITALS: BP 130/75; PULSE 55; TEMP 98.7
== END 2017-12-13 07:41 | disposition home or self-care (01) ==
LOC: ED 05:49
DX: R51 Headache (principal); D64.9 Anemia, unspecified
CPT/HCPCS: 70450; 80053; 81003; 81025; 85025; 96374; 96375; 99285; J1885; J2405; J2765; J7030

== ENCOUNTER 2018-05-10 12:50 | Emergency (ER) | payer MEDICAID ==
[2018-05-10 12:50] VITALS: BMI 33.6
[2018-05-10 13:33] VITALS: RESP 18; O2SAT 98
--- NOTE | 2018-05-10 13:54 | ED PDOC ---
Arrival/HPI - General Chief Complaint: Abdominal Pain Time Seen by Provider: 05/10/18 13:34 Historian: Patient - History of Present Illness Narrative History of Present Illness (Text): 05/10/18 13:51 23-year-old female complaining of intermittent crampy abdominal pain associated with nausea, vomiting and diarrhea which started this morning. Patient states that her younger son has similar symptoms which started yesterday and her daughter has similar symptoms as well which started today. Otherwise reports no fever, urinary symptoms, abdominal surgeries, has no other complaints. PMD Adam Past Medical History - Past History Past History: No Previous - Infectious Disease Hx of Infectious Diseases: None - Reproductive Menopause: No - Cardiac Hx Cardiac Disorders: No - Pulmonary Hx Respiratory Disorders: No - Neurological Hx Neurological Disorder: Yes Hx Migraine: Yes - HEENT Hx HEENT Disorder: No - Renal Hx Renal Disorder: No - Endocrine/Metabolic Hx Endocrine Disorders: No - Hematological/Oncological Hx Blood Disorders: Yes Hx Anemia: Yes - Integumentary Hx Dermatological Disorder: No - Musculoskeletal/Rheumatological Hx Musculoskeletal Disorders: No - Gastrointestinal Hx Gastrointestinal Disorders: No - Genitourinary/Gynecological Hx Genitourinary Disorders: No Other/Comment: kidney infections 2016 - Psychiatric Hx Psychophysiologic Disorder: No Hx Substance Use: No - Anesthesia Hx Anesthesia: No Hx Anesthesia Reactions: No Hx Malignant Hyperthermia: No Family/Social History Family/Social History: No Known Family HX Smoking Status: Never Smoked Hx Alcohol Use: No Hx Substance Use: No Allergies/Home Meds Allergies/Adverse Reactions: Allergies almond Allergy (Verified 12/13/17 06:07) ITCHING cashew nut Allergy (Verified 12/13/17 06:07) ITCHING pecan nut Allergy (Verified 12/13/17 06:07) ITCHING peanut Adverse Reaction (Verified 05/10/18 13:33) ANAPHYLAXIS Home Medications: Home Meds Medication Instructions Recorded Confirmed Gabapentin [Neurontin] 100 mg PO TID 12/13/17 12/13/17 Review of Systems - Review of Systems Constitutional: absent: Fatigue, Fevers Respiratory: absent: SOB, Cough Cardiovascular: absent: Chest Pain, Palpitations Gastrointestinal: Abdominal Pain, Diarrhea, Nausea, Vomiting Genitourinary Female: absent: Dysuria, Frequency, Hematuria Musculoskeletal: absent: Arthralgias, Back Pain Skin: absent: Rash, Pruritis Neurological: absent: Headache, Dizziness Physical Exam Vital Signs Temp Pulse Resp BP Pulse Ox 05/10/18 13:15 98.4 F 99 H 18 130/98 H 98 Temperature: Afebrile Blood Pressure: Normal Pulse: Regular Respiratory Rate: Normal Appearance: Positive for: Well-Appearing, Non-Toxic, Comfortable Pain Distress: None Mental Status: Positive for: Alert and Oriented X 3 - Systems Exam Head: Present: Atraumatic, Normocephalic Pupils: Present: PERRL Extroacular Muscles: Present: EOMI Conjunctiva: Present: Normal Mouth: Present: Moist Mucous Membranes Neck: Present: Normal Range of Motion Respiratory/Chest: Present: Clear to Auscultation, Good Air Exchange. No: Respiratory Distress, Accessory Muscle Use Cardiovascular: Present: Regular Rate and Rhythm, Normal S1, S2. No: Murmurs Abdomen: No: Tenderness, Distention, Peritoneal Signs Back: Present: Normal Inspection Upper Extremity: Present: Normal Inspection. No: Cyanosis, Edema Lower Extremity: Present: Normal Inspection. No: Edema Neurological: Present: GCS=15, CN II-XII Intact, Speech Normal Skin: Present: Warm, Dry, Normal Color. No: Rashes Psychiatric: Present: Alert, Oriented x 3, Normal Insight, Normal Concentration Medical Decision Making ED Course and Treatment: 05/10/18 13:52 Patient medicated with Bentyl by mouth and Zofran by mouth. Patient is tolerating by mouth fluids without any difficulty in the emergency room and without vomiting. Diagnosis of viral gastroenteritis discussed with the patient. Instructed on BRAT diet and to drink plenty of fluids. Advised to follow up with primary care physician in 1-2 days without fail. Advised to take medication as prescribed. Return to the emergency room at any time for any new or worsening symptoms. Patient states she fully agrees with and understands discharge instructions. States that she agrees with the plan and disposition. Verbalized and repeated discharge instructions and plan. I have given the patient opportunity to ask any additional questions. - Medication Orders Current Medication Orders: Dicyclomine HCl (Bentyl) 10 mg PO QID MARIE Ondansetron HCl (Zofran Odt) 4 mg PO STAT STA Stop: 05/10/18 13:49 - PA / DAIRY BAR MANAGER / Resident Statement MD/DO has reviewed & agrees with the documentation as recorded. Disposition/Present on Arrival - Present on Arrival Any Indicators Present on Arrival: No History of DVT/PE: No History of Uncontrolled Diabetes: No Urinary Catheter: No History of Decub. Ulcer: No History Surgical Site Infection Following: None - Disposition Have Diagnosis and Disposition been Completed?: Yes Diagnosis: Viral gastroenteritis Disposition: HOME/ ROUTINE Disposition Time: 14:00 Patient Plan: Discharge Patient Problems: Current Active Problems Problem Status Onset Viral gastroenteritis Acute Condition: STABLE Discharge Instructions (ExitCare): Viral Gastroenteritis, Adult (DC) Additional Instructions: Thank you for letting us take care of you today. You were treated for viral gastroenteritis. The emergency medical care you received today was directed at your acute symptoms. If you were prescribed any medication, please fill it and take as directed. It may take several days for your symptoms to resolve. Return to the Emergency Department if your symptoms worsen, do not improve, or if you have any other problems. Please contact your doctor in 2 days for re-evaluation and follow up. Bring any paperwork you were given at discharge with you along with any medications you are taking to your follow up visit. Our treatment cannot replace ongoing medical care by a primary care provider (PCP) outside of the emergency department. Thank you for allowing the [facility] team to be part of your care today. Prescriptions: Dicyclomine [Bentyl] 20 mg PO QID PRN #20 tab PRN Reason: Other Ondansetron ODT [Zofran ODT] 4 mg PO DAILY PRN #20 odt PRN Reason: Nausea/Vomiting Forms: [employer] ([place])
[2018-05-10 16:52] VITALS: BP 128/73; PULSE 72; TEMP 98.3
== END 2018-05-10 15:00 | disposition home or self-care (01) ==
LOC: ED 12:50
DX: A08.4 Viral intestinal infection, unspecified (principal)

== ENCOUNTER 2018-06-29 12:42 | Emergency (ER) | payer MEDICAID ==
[2018-06-29 12:42] VITALS: BMI 33.6
[2018-06-29 12:58] VITALS: RESP 18
[2018-06-29] MEDS ORDERED: TDAP Vaccine 0.5 mL Syr IM ONE (13:36)
--- NOTE | 2018-06-29 15:13 | ED PDOC ---
Arrival/HPI - General Chief Complaint: Lower Extremity Problem/Injury Time Seen by Provider: 06/29/18 12:45 Historian: Patient - History of Present Illness Narrative History of Present Illness (Text): 06/29/18 15:15 24-year-old female presents today with right knee pain status post injury yesterday. Patient states she was running tripped and fell and landed directly on the anterior aspect of the right knee.patient is complaining of pain over the anterior aspect of the knee states she cleaned the abrasion at home. She denies numbness weakness or tingling in the extremities. No medications were taken for pain at home. She denies fevers or chills. Denies hitting her head. No chest pain or shortness of breath. No other complaints patient states she is able to ambulate but has pain with ambulation. Time/Duration: Other (yesterday) Symptom Onset: Sudden Symptom Course: Improving Quality: Aching Severity Level: Mild Past Medical History - Provider Review Nursing Documentation Reviewed: Yes - Travel History Have you recently traveled outside [place] w/in the past 3 mons?: No - Past History Past History: No Previous - Infectious Disease Hx of Infectious Diseases: None - Tetanus Immunization Tetanus Immunization: Unknown - Cardiac Hx Cardiac Disorders: No - Pulmonary Hx Respiratory Disorders: No - Neurological Hx Neurological Disorder: Yes Hx Migraine: Yes - HEENT Hx HEENT Disorder: No - Renal Hx Renal Disorder: No - Endocrine/Metabolic Hx Endocrine Disorders: No - Hematological/Oncological Hx Blood Disorders: Yes Hx Anemia: Yes - Integumentary Hx Dermatological Disorder: No - Musculoskeletal/Rheumatological Hx Musculoskeletal Disorders: No - Gastrointestinal Hx Gastrointestinal Disorders: No - Genitourinary/Gynecological Hx Genitourinary Disorders: No Other/Comment: kidney infections 2016 - Psychiatric Hx Psychophysiologic Disorder: No Hx Substance Use: No - Anesthesia Hx Anesthesia: No Hx Anesthesia Reactions: No Hx Malignant Hyperthermia: No Family/Social History - Physician Review Nursing Documentation Reviewed: Yes Family/Social History: Unknown Family HX Smoking Status: Never Smoked Hx Alcohol Use: No Hx Substance Use: No Allergies/Home Meds Allergies/Adverse Reactions: Allergies almond Allergy (Verified 06/29/18 12:58) ITCHING cashew nut Allergy (Verified 06/29/18 12:58) ITCHING pecan nut Allergy (Verified 06/29/18 12:58) ITCHING peanut Adverse Reaction (Verified 06/29/18 12:58) ANAPHYLAXIS Home Medications: Home Meds Medication Instructions Recorded Confirmed Iron Injection 06/29/18 Review of Systems - Review of Systems Constitutional: absent: Fatigue, Fevers Respiratory: absent: SOB, Cough Cardiovascular: absent: Chest Pain, Palpitations Gastrointestinal: absent: Abdominal Pain, Nausea, Vomiting Genitourinary Female: absent: Other Musculoskeletal: Arthralgias (right knee pain). absent: Back Pain Skin: absent: Rash, Pruritis Neurological: absent: Headache, Dizziness Psychiatric: absent: Anxiety, Depression Physical Exam Vital Signs Reviewed: Yes Vital Signs Temp Pulse Resp BP Pulse Ox 06/29/18 12:55 98.6 F 98 H 18 121/86 97 Temperature: Afebrile Blood Pressure: Normal Pulse: Regular Respiratory Rate: Normal Appearance: Positive for: Well-Appearing, Non-Toxic, Comfortable Pain Distress: None Mental Status: Positive for: Alert and Oriented X 3 - Systems Exam Head: Present: Atraumatic Mouth: Present: Moist Mucous Membranes Respiratory/Chest: Present: Clear to Auscultation Cardiovascular: Present: Regular Rate and Rhythm Upper Extremity: Present: Normal Inspection, Normal ROM Lower Extremity: Present: NORMAL PULSES, Normal ROM, Tenderness (right knee: + ttp over the anterior aspect of the knee; full rom of knee. minimal edema. no calf tenderness. + superficial abrasion noted to the patella. ecchymosis noted to the inferior anterior knee. ambulates with steady gait. ), Swelling, Neurovascularly Intact, Capillary Refill < 2 s. No: CALF TENDERNESS, Erythema, Deformity, Temperature Abnormalties Neurological: Present: GCS=15, Speech Normal, Motor Func Grossly Intact, Normal Sensory Function Skin: Present: Warm, Dry, Normal Color Psychiatric: Present: Alert, Oriented x 3 Medical Decision Making ED Course and Treatment: 06/29/18 15:19 Patient nontoxic well-appearing in no distress with stable vital signs X-rays of the knee: no fracture motrin po tetanus updated Patient placed in knee immobilizer. Crutches given for ambulation I discussed all results with patient advised to followup with the orthopedist for the next 2 days. Return if symptoms worsen persist or new symptoms develop i advised the patient that although the xrays show no fracture; there is still a possibility for ligamentous or tendon injury the patient must see the orthopedist for further evaluation. Patient verbalizes understanding of discharge instructions and need for immediate followup. Impression: knee pain Motrin every 6 hours as needed for pain Rest, ice, compression, elevation Use crutches for ambulation Followup with the orthopedist within the next 2 days Followup with primary care physician within the next 2 days Return if symptoms worsen persist or if new symptoms develop Reassessment Condition: Re-examined, Improved - RAD Interpretation Radiology Orders: 06/29/18 13:36 KNEE W PATELLA RIGHT 3 VIEW [RAD] Stat - Medication Orders Current Medication Orders: Discontinued Medications Tetanus/Reduced Diphtheria/Acell Pertussis (Boostrix Vaccine Inj) 0.5 ml IM .ONCE ONE Stop: 06/29/18 13:37 Last Admin: 06/29/18 14:00 Dose: 0.5 ml Immunization Registry Document 06/29/18 14:00 [facility] (Rec: 06/29/18 14:14 [id number]-Date provided 05/10/18 MAR Immunization Data Document 06/29/18 14:00 [facility] (Rec: 06/29/18 14:14 [id number] Immunization Data Vaccine Information Sheet Given Yes Disposition/Present on Arrival - Present on Arrival Any Indicators Present on Arrival: No History of DVT/PE: No History of Uncontrolled Diabetes: No Urinary Catheter: No History of Decub. Ulcer: No History Surgical Site Infection Following: None - Disposition Have Diagnosis and Disposition been Completed?: Yes Diagnosis: Knee pain Disposition: HOME/ ROUTINE Disposition Time: 14:30 Patient Plan: Discharge Patient Problems: Current Active Problems Problem Status Onset Knee pain Acute Condition: GOOD Discharge Instructions (ExitCare): Knee Pain Additional Instructions: Motrin every 6 hours as needed for pain Rest, ice, compression, elevation Use crutches for ambulation Followup with the orthopedist within the next 2 days Followup with primary care physician within the next 2 days Return if symptoms worsen persist or if new symptoms develop Prescriptions: Ibuprofen [Motrin] 600 mg PO Q6H PRN #20 tab PRN Reason: pain/fever reduction Referrals: Eric Stark III, MD [Medical Doctor] - Follow up with primary Anaya Amaral MD [Medical Doctor] - Follow up with primary [facility] [Outside] - Follow up with primary [facility] [Outside] - Follow up with primary Forms: [place] ([place]), WORK NOTE
[2018-06-29 15:36] VITALS: BP 122/84; PULSE 86; TEMP 98; O2SAT 99
--- NOTE | 2018-06-29 16:22 | RAD ---
PROCEDURE: Right Knee Radiographs. HISTORY: knee pain COMPARISON: No prior. FINDINGS: BONES: No acute displaced fracture. JOINTS: No dislocation. JOINT EFFUSION: Moderate suprapatellar joint effusion. OTHER FINDINGS: None. IMPRESSION: Moderate suprapatellar joint effusion.
== END 2018-06-29 15:30 | disposition home or self-care (01) ==
LOC: ED 12:42
DX: M25.561 Pain in right knee (principal); Z23 Encounter for immunization

== ENCOUNTER 2018-10-09 08:45 | Emergency (ER) | payer MEDICAID | END 2018-10-09 11:47 | disposition home or self-care (01) | LOC: ED 08:45 ==

== ENCOUNTER 2018-11-21 12:56 | Emergency (ER) | payer MEDICAID ==
[2018-11-21 13:07] VITALS: BMI 37.0
[2018-11-21 13:08] VITALS: RESP 18; TEMP 97.7
[2018-11-21] MEDS ORDERED: Sodium Chloride 0.9% 1,000 ML IV STA (13:29)
--- NOTE | 2018-11-21 13:42 | ED PDOC ---
Arrival/HPI - General Chief Complaint: GI Problem Time Seen by Provider: 11/21/18 12:57 Historian: Patient - History of Present Illness Narrative History of Present Illness (Text): 23 y/o 12 week A0 female presents to the ED c/o abdominal pain, nausea, and vomiting x 1 day. Yesterday patient developed crampy lower abdominal pain with associated nonbloody nonbilious emesis. Pt has had approx 5-6 episodes of emesis, last just [employer]. She has been unable to tolerate much by mouth. Last BM this morning. Pt is taking vitamins as prescribed. She follows with a private OB and has had prior ultrasounds confirming IUP with twin gestation. Last ultrasound 4 weeks ago. LMP 08/30/18. Denies vaginal bleeding, back pain, fever, chills, urinary symptoms, diarrhea, dizziness, syncope, headache, or any other associated symptoms. Past Medical History - Provider Review Nursing Documentation Reviewed: Yes - Past History Past History: No Previous - Infectious Disease Hx of Infectious Diseases: None - Tetanus Immunization Tetanus Immunization: Unknown - Cardiac Hx Cardiac Disorders: No - Pulmonary Hx Respiratory Disorders: No - Neurological Hx Neurological Disorder: Yes Hx Migraine: Yes - HEENT Hx HEENT Disorder: No - Renal Hx Renal Disorder: No - Endocrine/Metabolic Hx Endocrine Disorders: No - Hematological/Oncological Hx Blood Disorders: Yes Hx Anemia: Yes - Integumentary Hx Dermatological Disorder: No - Musculoskeletal/Rheumatological Hx Musculoskeletal Disorders: No - Gastrointestinal Hx Gastrointestinal Disorders: No - Genitourinary/Gynecological Hx Genitourinary Disorders: No Other/Comment: kidney infections 2016 - Psychiatric Hx Psychophysiologic Disorder: No Hx Substance Use: No - Anesthesia Hx Anesthesia: No Hx Anesthesia Reactions: No Hx Malignant Hyperthermia: No Family/Social History - Physician Review Nursing Documentation Reviewed: Yes Family/Social History: No Known Family HX Smoking Status: Never Smoked Hx Alcohol Use: No Hx Substance Use: No Allergies/Home Meds Allergies/Adverse Reactions: Allergies almond Allergy (Verified 11/21/18 13:08) ITCHING cashew nut Allergy (Verified 11/21/18 13:08) ITCHING pecan nut Allergy (Verified 11/21/18 13:08) ITCHING peanut Adverse Reaction (Verified 11/21/18 13:08) ANAPHYLAXIS Home Medications: Home Meds Medication Instructions Recorded Confirmed Vit No.126/Iron/Folic 1 tab PO DAILY 10/09/18 11/21/18 [Classic Tablet] Review of Systems - Review of Systems Constitutional: Normal. absent: Fevers Eyes: Normal. absent: Vision Changes ENT: Normal. absent: Sore Throat, Epistaxis, Sinus Congestion Respiratory: Normal. absent: SOB, Cough Cardiovascular: Normal. absent: Chest Pain, Palpitations, Syncope Gastrointestinal: Abdominal Pain, Nausea, Vomiting, Appetite Changes. absent: Stool Changes, Constipation, Diarrhea, Hematochezia, Hematemesis Genitourinary Female: Normal. absent: Dysuria, Frequency, Urine Output Changes, Vaginal Bleeding, Vaginal Discharge Musculoskeletal: Normal. absent: Back Pain, Neck Pain Skin: Normal. absent: Rash Neurological: Normal. absent: Headache, Dizziness Physical Exam Vital Signs Reviewed: Yes Vital Signs Temp Pulse Resp BP Pulse Ox 11/21/18 13:07 97.7 F 85 18 119/81 98 Temperature: Afebrile Blood Pressure: Normal Pulse: Regular Respiratory Rate: Normal Appearance: Positive for: Well-Appearing, Non-Toxic, Comfortable Pain Distress: None Mental Status: Positive for: Alert and Oriented X 3 - Systems Exam Head: Present: Atraumatic, Normocephalic Pupils: Present: PERRL Extroacular Muscles: Present: EOMI Conjunctiva: Present: Normal Mouth: Present: Moist Mucous Membranes Neck: Present: Normal Range of Motion. No: Meningeal Signs Respiratory/Chest: Present: Clear to Auscultation, Good Air Exchange. No: Respiratory Distress, Accessory Muscle Use Cardiovascular: Present: Regular Rate and Rhythm, Normal S1, S2. No: Murmurs Abdomen: Present: Tenderness (generalized to lower abdomen: RLQ, LLQ, suprapubic), Normal Bowel Sounds. No: Distention, Peritoneal Signs, Rebound, Guarding Back: Present: Normal Inspection. No: CVA Tenderness Upper Extremity: Present: Normal Inspection, Normal ROM, NORMAL PULSES, Neurovascularly Intact, Capillary Refill < 2s. No: Cyanosis, Edema, Temperature Abnormalties Lower Extremity: Present: Normal Inspection, Normal ROM Neurological: Present: GCS=15, CN II-XII Intact, Speech Normal, Motor Func Grossly Intact, Normal Sensory Function, Gait Normal Skin: Present: Warm, Dry, Normal Color. No: Rashes Psychiatric: Present: Alert, Oriented x 3, Normal Insight, Normal Concentration, Normal Affect, Normal Mood Medical Decision Making ED Course and Treatment: 11/21/18 13:31 Initial Plan: * Labs * Transvaginal US * IVF * Tylenol On initial exam, patient is very well appearing in no acute distress. No active vomiting. Abdomen is soft, mildly tender to lower quadrants. Vitals stable, no fever. 14:10 CBC reviewed, mild leukocytosis at 12, otherwise unremarkable CMP reviewed, unremarkable Urine shows no bacteria or infection Ultrasound reveals live twin IUP without visible abnormality. Cervical os closed and long. Patient reports resolution of symptoms with medication. No vomiting in ED. Pt most likely with gastroenteritis or related N/V. ED attending Dr. Buenrostro evaluated and examined patient at bedside. Agrees with plan to discharge home with close followup. Pt has appointment with her OBGYN on November 26. Diagnostic testing results and plan of care discussed with patient. Strict instructions given regarding prescription use, importance of followup, and signs/symptoms to return to ER including localized RLQ pain, worsening pain, fever, or any other new/worsening symptoms. Pt verbalized understanding of dis cussion. Patient is A&Ox3, ambulating with steady gait, with vital signs stable for discharge. - Lab Interpretations Lab Results: 11/21/18 13:40 11/21/18 13:40 Lab Results 11/21/18 14:50: Urine Color Yellow, Urine Appearance Clear, Urine pH 8.0, Ur Specific [place] 1.015, Urine Protein Negative, Urine Glucose (UA) Negative, Urine Ketones Trace H, Urine Blood Negative, Urine Nitrate Negative, Urine Bilirubin Negative, Urine Urobilinogen 1.0 H, Ur Leukocyte Esterase Negative, Urine HCG, Qual Positive 11/21/18 13:40: Beta HCG, Quant 131321.00 H 11/21/18 13:40: Sodium 135, Potassium 3.9, Chloride 104, Carbon Dioxide 23, Anion Gap 12, BUN 7, Creatinine 0.4 L, Est GFR ( Amer) > 60, Est GFR (Non-Af Amer) > 60, Random Glucose 76, Calcium 9.3, Total Bilirubin 0.3, AST 21, ALT 15, Alkaline Phosphatase 94, Total Protein 7.0, Albumin 3.6, Globulin 3.4, Albumin/Globulin Ratio 1.1 11/21/18 13:40: PT 11.7, INR 1.05, APTT 30.8 11/21/18 13:40: WBC 12.0 H, RBC 4.56, Hgb 13.1, Hct 38.7, MCV 84.9, MCH 28.7, MCHC 33.9, RDW 13.8, Plt Count 327, MPV 9.3, Neut % (Auto) 71.7 H, Lymph % (Auto) 21.9 L, [place] % (Auto) 5.5, Eos % (Auto) 0.7 L, Baso % (Auto) 0.2, Lymph # (Auto) 2.6, [place] # (Auto) 0.7 H, Eos # (Auto) 0.1, Baso # (Auto) 0.02, Absolute Neuts (auto) 8.61 H I have reviewed the lab results: Yes - RAD Interpretation Narrative RAD Interpretations (Text): 11/21/18 15:06 Transvaginal US: FINDINGS: LMP: 08/24/2018. Prior examinations from the current : 10/09/2018. TECHNIQUE: Real-time 2D imaging, duplex and color Doppler. FINDINGS: FETUS A: Cardiac activity: Present Rate: 158 BPM Measurements: [place] rump length: 5.49 cm Gestational age based on CRL 12 WEEKS 1 DAY Gestational age 9 WEEKS 6 DAYS based on gestational sac measurement 4.38 cm Gestational age derived from LMP: 12 WEEKS 5 DAYS ROBERT based on LMP: 05/31/2019 ROBERT based on biometry: Gestational concordance NOTED Yolk sac NOT identified FETUS B: Cardiac activity: Present Rate: 160 BPM Measurements: [place] rump length: 6.31 cm Gestational age based on CRL 12 WEEKS 5 DAYS Gestational age derived from LMP: 12 WEEKS 5 DAYS ROBERT based on LMP: 05/31/2019 ROBERT based on biometry: 05/31/2019 Gestational concordance NOTED. Yolk sac NOT identified Cervix: No Cervical abnormalities: Negative examination for cervical dilatation or effacement. Closed cervix measuring 4.11 cm Subchorionic hemorrhage: None UTERUS: 8.2 X 8.4 X 15.2 cm. ADNEXA: Right: NOT VISIBLE Left: NOT VISIBLE. Fluid in the cul-de-sac: NONE IMPRESSION: 1. TWIN LIVE INTRAUTERINE GESTATIONS. 2. GESTATIONAL CONCORDANCE FOR FETUS IS A AND B. 3. ADEQUATE INTERVAL PROGRESSION COMPARED TO PRIOR STUDIES. Radiology Orders: 11/21/18 13:25 TRANSVAGINAL [US] Stat Software Tester: Radiologist - Medication Orders Current Medication Orders: Sodium Chloride (Sodium Chloride 0.9%) 1,000 mls @ 999 mls/hr IV .Q1H1M STA Stop: 11/21/18 14:29 Disposition/Present on Arrival - Present on Arrival Any Indicators Present on Arrival: No History of DVT/PE: No History of Uncontrolled Diabetes: No Urinary Catheter: No History of Decub. Ulcer: No History Surgical Site Infection Following: None - Disposition Have Diagnosis and Disposition been Completed?: Yes Diagnosis: Abdominal pain affecting , Nausea/vomiting in Disposition: HOME/ ROUTINE Disposition Time: 15:45 Patient Plan: Discharge Condition: IMPROVED Discharge Instructions (ExitCare): Acute Abdomen (Belly Pain), Adult (DC), Nausea and Vomiting of (DC), Stomach Pain in Early Additional Instructions: Diclegis 2 tablets at bedtime as needed for nausea and vomiting Increase fluids Rest, no strenuous activity Continue home medications as prescribed Followup with OBGYN within 2 days Followup with primary within 2 days Return to ER with any new/worsening symptoms - localized right sided pain, fever, worsening pain Prescriptions: Doxylamine/Pyridoxine HCl (B6) [Diclegis Dr 10-10 mg Tablet] 2 each PO HS #14 tab Referrals: Sherwin Hazel MD [Staff Provider] - Follow up with primary Renee Hardin MD [Primary Care Provider] - Follow up with primary Forms: [facility] ([place]), WORK NOTE
[2018-11-21 14:00] LABS: BASO # 0.02 K/mm3 (0.0-2.0); BASO % 0.2 % (0.0-3.0); EOS # 0.1 (0.0-0.7); EOS % 0.7 % (1.5-5.0); HEMOGLOBIN 13.1 g/dL (12.0-16.0); LYMPH # 2.6 (1.2-3.4); LYMPH % 21.9 % (22.0-35.0); MEAN CELL VOLUME 84.9 fl (80.0-105.0); MEAN CORPUSCULAR HEMOGLOBIN 28.7 pg (25.0-35.0); MEAN CORPUSCULAR HGB CONC 33.9 g/dl (31.0-37.0); MEAN PLATELET VOLUME 9.3 fl (7.0-11.0); MONO # 0.7 (0.1-0.6); MONO % 5.5 % (1.0-6.0); RBC 4.56 10^6/uL (3.5-6.1); RED CELL DISTRIBUTION WIDTH 13.8 % (11.5-14.5)
[2018-11-21 14:12] LABS: ALB/GLOB RATIO 1.1 (1.1-1.8); ALBUMIN 3.6 g/dL (3.0-4.8); ALT/SGPT 15 U/L (7-56); AST/SGOT 21 U/L (14-36); BLOOD UREA NITROGEN 7 mg/dL (7-21); CALCIUM 9.3 mg/dL (8.4-10.5); GFR NON-AFRICAN AMERICAN > 60
[2018-11-21 14:25] LABS: INR 1.05; PARTIAL THROMBOPLASTIN TIME 30.8 Seconds (26.9-38.3); PROTHROMBIN TIME 11.7 SECONDS (9.4-12.5)
--- NOTE | 2018-11-21 14:53 | US ---
Date of service: 11/21/2018 PROCEDURE: Obstetrical ultrasound, 1st trimester. HISTORY: OB twin gestation, LMP 08/25/18, Right Pain COMPARISON: 10/09/2018. TECHNIQUE: Standard protocol for this study/examination. FINDINGS: LMP: 08/24/2018. Prior examinations from the current : 10/09/2018. TECHNIQUE: Real-time 2D imaging, duplex and color Doppler. FINDINGS: FETUS A: Cardiac activity: Present Rate: 158 BPM Measurements: Rosalie rump length: 5.49 cm Gestational age based on CRL 12 WEEKS 1 DAY Gestational age 9 WEEKS 6 DAYS based on gestational sac measurement 4.38 cm Gestational age derived from LMP: 12 WEEKS 5 DAYS ROBERT based on LMP: 05/31/2019 ROBERT based on biometry: 06/04/2019 Gestational concordance NOTED Yolk sac NOT identified FETUS B: Cardiac activity: Present Rate: 160 BPM Measurements: Rosalie rump length: 6.31 cm Gestational age based on CRL 12 WEEKS 5 DAYS Gestational age derived from LMP: 12 WEEKS 5 DAYS ROBERT based on LMP: 05/31/2019 ROBERT based on biometry: 05/31/2019 Gestational concordance NOTED. Yolk sac NOT identified Cervix: No Cervical abnormalities: Negative examination for cervical dilatation or effacement. Closed cervix measuring 4.11 cm Subchorionic hemorrhage: None UTERUS: 8.2 X 8.4 X 15.2 cm. ADNEXA: Right: NOT VISIBLE Left: NOT VISIBLE. Fluid in the cul-de-sac: NONE IMPRESSION: 1. TWIN LIVE INTRAUTERINE GESTATIONS. 2. GESTATIONAL CONCORDANCE FOR FETUS IS A AND B. 3. ADEQUATE INTERVAL PROGRESSION COMPARED TO PRIOR STUDIES.
[2018-11-21 15:11] LABS: URINE BILIRUBIN NEGATIVE (NEGATIVE); URINE BLOOD NEGATIVE (NEGATIVE); URINE GLUCOSE (UA) NEGATIVE (NEGATIVE); URINE LEUKOCYTE ESTERASE NEGATIVE Leu/uL (NEGATIVE); URINE PROTEIN NEGATIVE mg/dL (<30 mg/dL)
[2018-11-21 15:14] LABS: URINE APPEARANCE CLEAR (CLEAR); URINE COLOR YELLOW (YELLOW)
[2018-11-21 15:15] LABS: HCG,QUALITATIVE URINE POSITIVE (NEGATIVE)
[2018-11-21 16:22] VITALS: BP 114/65; PULSE 80; O2SAT 100
== END 2018-11-21 16:22 | disposition home or self-care (01) ==
LOC: ED 12:56
DX: O21.9 Vomiting of pregnancy, unspecified (principal); Z3A.12 12 weeks gestation of pregnancy; O26.891 Other specified pregnancy related conditions, first trimester; R10.9 Unspecified abdominal pain
CPT/HCPCS: 76817; 80053; 81003; 81025; 84702; 84703; 85025; 85610; 85730; 87086; 99284; J7030